=== PATIENT | male | born 1945 | race Caucasian/White ===

== ENCOUNTER 2019-02-03 15:15 | Inpatient (IN) | payer MEDICARE ==
[2019-02-03] MEDS ORDERED: Nitroglycerin 0.4 MG TAB (25 Tab Bottle) SL PRN (17:43)
[2019-02-03] MEDS: Apixaban 5 MG TAB PO SCH (21:36)
[2019-02-03] MEDS: Lisinopril 5 MG TAB PO SCH (21:36)
--- NOTE | 2019-02-03 23:01 | HP ---
REASON FOR ADMISSION: Skilled rehab in [facility] after recent hospitalization. PRIMARY CARE PHYSICIAN: Out-of-town. HISTORY OF THE PRESENT ILLNESS AND HOSPITAL COURSE: Mr. Flores is a 73-year- old male with past medical history of stroke with residual neurologic deficits, noncompliant with medications. He was only on aspirin daily and Lipitor 40 mg nightly. He also had a history of MRI compatible with dual-chamber permanent pacemaker placed in 2012 for symptomatic Mobitz 1 block, He also has history of hypertension, nicotine dependence and obesity. The patient presented initially to [facility] two weeks prior to his admission on 01/22/2019,due to history of crescendo chest pain. This is associated with increased confusion prompting further evaluation. Prior to admission, he reported that he has been experiencing pressure-like chest pain that is progressively worsening. In the ER, initial stroke scale was reportedly 4/42, but the patient was felt to be at his baseline. On further evaluation, the patient was diagnosed with CAD and he subsequently undergone CABG x4 on 01/23/2019, with CARBAJAL - LAD, SVG - ramus, diagonal, and RCA. He was also diagnosed with chronic systolic heart failure with recent echocardiogram showing EF of 40% to 45%. The patient was treated appropriately. He was placed on beta anahi, ALEBRTA inhibitor, and continued his aspirin. His statin was stopped due to elevated liver function tests. Diuretic, spironolactone and furosemide were added as well. Serial chest x- rays were done and the latest one was obtained prior to discharge on 02/03/2019 , which showed cardiomegaly with no signs of overt edema. During this hospitalization, there was also a reported significant dysphagia, thus the patient's diet was changed to pureed diet with nectar thickened liquid. His medications were crushed. The patient was also reported to have increased confusion associated with some behavioral disturbances requiring a sitter. The patient was reported to have metabolic encephalopathy. He was treated supportively and did fine. Prior to discharge, overall cognitive status was deemed at baseline, not requiring further sitter prior to discharge. The patient remained generally weak and deconditioned with the recent surgery, recommending further skilled rehab in [facility]. He was transferred on 2018. When evaluated, the patient was lying comfortably in bed. He appears confused. He knows his name only. He is not aware where he is at, at this point. No family members are present at the time of evaluation. The patient could not contribute much to his history. There was no discharge summary available at this time as well. Information were taken from the hospital records. PAST MEDICAL AND SURGICAL HISTORY: Hypertension, hyperlipidemia, history of CVA x3 with right residual weakness, history of pacemaker placement in 2013, history of gout, previous smoker, history of poor medical compliance. Obesity and gout. ALLERGIES: NONE. SOCIAL HISTORY: The patient lives alone. He is . He reports that he has two daughters. He lives in [place]. He does not use any accessory device. He admits to nicotine-tobacco use. He denies alcohol or illicit drug use. REVIEW OF SYSTEMS: Limited secondary to confusion/dementia. He denies fever or chills. He reports general weakness and fatigue. No active chest pain, shortness of breath, or pain with breathing. No abdominal pain. No rectal bleeding. CURRENT MEDICATIONS: 1. Amlodipine 5 mg p.o. daily. 2. Eliquis 5 mg p.o. b.i.d. 3. Carvedilol 3.125 mg p.o. b.i.d. 4. Aspirin 81 mg daily. 5. Lisinopril 5 mg p.o. b.i.d. 6. Furosemide 40 mg p.o. daily. 7. Spironolactone 25 mg q.a.m. 8. Nitroglycerin 0.4 sublingual q.5 minutes p.r.n. PHYSICAL EXAMINATION: VITAL SIGNS: Current vital signs; blood pressure 149/67, temperature 98.2, pulse 66, respirations 16, and O2 sats 95% on room air. Weight 202 pounds and 4 ounces. Height 5 feet 7 inches. GENERAL: The patient is asleep, easily arousable with verbal stimulus. When awakened, he is alert and able to answer questions with some appropriateness. He is comfortable on exam. No signs of agony, not in distress. HEENT: Normocephalic, atraumatic. PERRL. Intact EOM. Anicteric sclerae. Oral mucosa is moist. NECK: Supple. No LAD. No thyromegaly. CARDIAC: Regular rate and rhythm. Normal S1 and S2. LUNGS: Normal excursion. Clear to auscultation bilaterally. EXTREMITIES: No edema. No cyanosis. SKIN: Postoperative sites on the anterior chest, upper abdomen, and left leg are dry, intact, no discharge, no exudates, and no signs of infection. He has multiple bruises on the left upper arm/elbow and left lower extremities. NEURO: DTRs 2+. Gait unsteady. The rest of neurological exam were not completed as patient was so sleepy at this time. PSYCH: Appears calm with appropriate demeanor and affect. LABORATORY DATA: 02/03/2019; WBC 14.5, hemoglobin 10.5, [id number], and platelets 257. 01/26/2019; WBC 10.8, hemoglobin 8.8, hematocrit 26.1, and platelets 116. On 01/22/2019; WBC 9.3, hemoglobin 15.9, hematocrit 48.8, and platelets 189. On 01/23/2019; PT 16.3, INR 1.3, and APTT 37.9. On 02/03/2019; [id number], potassium 4.0, BUN 21, creatinine 1.09, estimated GFR 66, glucose 127, and total bilirubin 1.2. Liver enzymes; AST 125, ALT 195, and alkaline phosphatase 278. Albumin 2.9. On 02/02/2019; total bilirubin 1.5, AST 221, ALT 253, and alkaline phosphatase 282. Albumin 2.8. On 02/01/2019; B12 of 576, folate 7.30. TSH on 01/24/2019, 1.231. On 01/23/2019; triglycerides 171, cholesterol 170, LDL 103, and HDL 33. On 01/22/2019; troponin 1.026. On 01/22/2019; troponin 0.866. On01/22/2019; troponin 0.113. ASSESSMENT: 1. Deconditioning secondary to general weakness. 2. Coronary artery disease with status post coronary artery bypass grafting x4 on 01/23/2019. 3. Chronic systolic heart failure with ejection fraction of 40% to 45%, compensated. 4. Hypertension. 5. Hyperlipidemia, previously on statin, currently statin was discontinued secondary to elevated LFTs. 6. Elevated liver enzymes, nonspecified. 7. Dysphagia, cerebrovascular accident sequelae 8. History of cerebrovascular accident x3 with right-sided mild residual weakness. 9. History of pacemaker placement in 2012. 10. Abnormality of gait. 11. History of gout. PLAN: 1. The patient was admitted to [facility] for skilled rehab. We will refer to PT, OT, and ST. 2. Diet; pureed and nectar thickened liquids. Medications to be crushed. 3. Continue all current medications as modified per list. 4. Routine serial CMP and CBC every weekly. 5. DVT prophylaxis, none, the patient is already on anticoagulant. 6. Aspiration precautions. 7. Further recommendations depending on the hospital course. 8. Estimated length of stay, 2 to 3 weeks. 9. Disposition, home versus possible placement. 10.Code status; per records, the patient is FULL CODE. We will confirm this with family in the morning. Job ID: [id number] [facility]
[2019-02-04] MEDS: Lisinopril 5 MG TAB PO SCH ×2 (08:26→21:35)
[2019-02-04] MEDS: Aspirin 81 mg Enteric Coated Tablet PO SCH (08:26)
[2019-02-04] MEDS: Furosemide 40 MG TAB PO SCH (08:26)
[2019-02-04] MEDS: Apixaban 5 MG TAB PO SCH ×2 (08:26→21:41)
[2019-02-04] MEDS: Carvedilol 3.125 MG TAB PO SCH ×2 (08:26→16:52)
[2019-02-04] MEDS: Spironolactone 25 MG TAB PO SCH (08:26)
[2019-02-04] MEDS ORDERED: Prevnar 13-Val Conj/PF 0.5 ML SYRINGE IM ONE (09:00)
[2019-02-04] MEDS: Amlodipine 5 MG TAB PO SCH (11:55)
[2019-02-05] MEDS: Spironolactone 25 MG TAB PO SCH (08:34)
[2019-02-05] MEDS: Carvedilol 3.125 MG TAB PO SCH ×2 (08:34→17:06)
[2019-02-05] MEDS: Aspirin 81 mg Enteric Coated Tablet PO SCH (08:34)
[2019-02-05] MEDS: Furosemide 40 MG TAB PO SCH (08:34)
[2019-02-05] MEDS: Lisinopril 5 MG TAB PO SCH ×2 (08:34→20:15)
[2019-02-05] MEDS: Apixaban 5 MG TAB PO SCH ×2 (08:35→20:16)
[2019-02-05] MEDS: Amlodipine 5 MG TAB PO SCH (08:35)
[2019-02-06] MEDS: Carvedilol 3.125 MG TAB PO SCH ×2 (08:18→16:56)
[2019-02-06] MEDS: Spironolactone 25 MG TAB PO SCH (08:18)
[2019-02-06] MEDS: Aspirin 81 mg Enteric Coated Tablet PO SCH (08:18)
[2019-02-06] MEDS: Apixaban 5 MG TAB PO SCH ×2 (08:19→20:40)
[2019-02-06] MEDS: Furosemide 40 MG TAB PO SCH (08:19)
[2019-02-06] MEDS: Lisinopril 5 MG TAB PO SCH ×2 (08:19→20:40)
[2019-02-06] MEDS: Amlodipine 5 MG TAB PO SCH (08:20)
[2019-02-07] MEDS: Spironolactone 25 MG TAB PO SCH (09:47)
[2019-02-07] MEDS: Furosemide 40 MG TAB PO SCH (09:48)
[2019-02-07] MEDS: Lisinopril 5 MG TAB PO SCH ×2 (09:48→21:19)
[2019-02-07] MEDS: Apixaban 5 MG TAB PO SCH ×2 (09:48→21:19)
[2019-02-07] MEDS: Aspirin 81 mg Enteric Coated Tablet PO SCH (09:48)
[2019-02-07] MEDS: Amlodipine 5 MG TAB PO SCH (09:48)
[2019-02-07] MEDS: Carvedilol 3.125 MG TAB PO SCH ×2 (09:48→18:05)
--- NOTE | 2019-02-07 14:53 | CT ---
CT HEAD WITHOUT CONTRAST: INDICATION: Stroke screening. COMPARISON: Comparison is made to CT 01/22/2019. FINDINGS: Ventricles have normal size and position. Encephalomalacia involving the left temporal and temporoparietal lobe region consistent with old infa rct appears stable. Evidence of old infarct involving the left cerebellum, brainstem at the gilberto level, and lacunar infar cts in the left basal ganglia all appear stable. There are chronic ischemia white matter changes again noted. There is an area of new lucency in the deep white matter on the right when compared to the prior exam and this could potentially represent a new lacunar infarct. There is no evidence of new cortical in farct, hemorrhage, or mass. IMPRESSION: 1. Numerous old infarcts on the left appear stable as described. 2. Chronic ischemic white matter changes. New lucency in the deep white matter on the right in the centrum semiovale region could represent new lacunar infarct. MRI could be performed for confirmatio n if clinically indicated. Findings related to Dr. Kerns. CODE CR POS: OFF
[2019-02-08] MEDS: Carvedilol 3.125 MG TAB PO SCH ×2 (09:24→17:32)
[2019-02-08] MEDS: Spironolactone 25 MG TAB PO SCH (09:24)
[2019-02-08] MEDS: Apixaban 5 MG TAB PO SCH ×2 (09:25→20:57)
[2019-02-08] MEDS: Lisinopril 5 MG TAB PO SCH ×2 (09:25→20:57)
[2019-02-08] MEDS: Amlodipine 5 MG TAB PO SCH (09:25)
[2019-02-08] MEDS: Furosemide 40 MG TAB PO SCH (09:25)
[2019-02-08] MEDS: Aspirin 81 mg Enteric Coated Tablet PO SCH (09:25)
[2019-02-09] MEDS: Amlodipine 5 MG TAB PO SCH (08:17)
[2019-02-09] MEDS: Spironolactone 25 MG TAB PO SCH (08:17)
[2019-02-09] MEDS: Aspirin 81 mg Enteric Coated Tablet PO SCH (08:17)
[2019-02-09] MEDS: Carvedilol 3.125 MG TAB PO SCH ×2 (08:17→17:17)
[2019-02-09] MEDS: Apixaban 5 MG TAB PO SCH ×2 (08:18→20:05)
[2019-02-09] MEDS: Lisinopril 5 MG TAB PO SCH ×2 (08:18→19:59)
[2019-02-09] MEDS: Furosemide 40 MG TAB PO SCH (08:18)
[2019-02-10 06:15] LABS: #Basophils 0.1 thou/uL (0.0-0.2); #Eosinphils 0.2 thou/uL (0.0-0.7); #Lymphocytes 2.3 thou/uL (1.20-3.40); #Monocytes 0.6 thou/uL (0.11-0.59); #Neutrophils 5.2 thou/uL (1.40-6.50); %Basophils 1.4 % (0.0-1.0); %Eosinophils 2.6 % (0.0-10.0); %Lymphocytes 27.8 % (21.0-51.0); %Neutrophils 61.3 % (42.0-75.0); Hemoglobin 11.1 g/dL (14.0-18.0); Mean Corpuscular HGB CONC 31.4 g/dL (32.0-36.0); Mean Corpuscular Hemoglobin 30.4 pg (27.0-31.0); Mean Corpuscular Volume 96.8 fL (78.0-98.0); Platelet Count 322 thou/uL (130-400); RBC Distribution Width 12.2 % (11.5-14.5); Red Blood Cell (RBC) Count 3.66 mill/uL (4.70-6.10); White Blood Cell (WBC) Count 8.4 thou/uL (4.8-10.8)
[2019-02-10 06:20] LABS: ALT (SGPT) 101 U/L (8-55); AST (SGOT) 46 U/L (5-34); Alkaline Phosphatase 197 U/L (40-110); Bilirubin, Direct 0.4 mg/dL (0.1-0.3); Bilirubin, Total 0.7 mg/dL (0.2-1.2); Protein, Total 6.9 g/dL (5.8-8.1)
[2019-02-10] MEDS: Aspirin 81 mg Enteric Coated Tablet PO SCH (08:37)
[2019-02-10] MEDS: Carvedilol 3.125 MG TAB PO SCH ×2 (08:37→17:16)
[2019-02-10] MEDS: Lisinopril 5 MG TAB PO SCH ×2 (08:37→20:09)
[2019-02-10] MEDS: Apixaban 5 MG TAB PO SCH ×2 (08:38→20:10)
[2019-02-10] MEDS: Amlodipine 5 MG TAB PO SCH (08:38)
[2019-02-10] MEDS: Spironolactone 25 MG TAB PO SCH (08:38)
[2019-02-10] MEDS: Furosemide 40 MG TAB PO SCH (08:39)
[2019-02-11] MEDS: Carvedilol 3.125 MG TAB PO SCH ×3 (08:40→17:15)
[2019-02-11] MEDS: Apixaban 5 MG TAB PO SCH ×2 (08:40→20:56)
[2019-02-11] MEDS: Aspirin 81 mg Enteric Coated Tablet PO SCH (08:40)
[2019-02-11] MEDS: Lisinopril 5 MG TAB PO SCH (08:43)
[2019-02-11] MEDS: Spironolactone 25 MG TAB PO SCH (08:43)
[2019-02-12] MEDS: Carvedilol 3.125 MG TAB PO SCH ×2 (09:12→16:55)
[2019-02-12] MEDS: Apixaban 5 MG TAB PO SCH ×2 (09:12→20:57)
[2019-02-12] MEDS: Spironolactone 25 MG TAB PO SCH (09:12)
[2019-02-12] MEDS: Lisinopril 5 MG TAB PO SCH ×2 (09:12→20:56)
[2019-02-12] MEDS: Aspirin 81 mg Enteric Coated Tablet PO SCH (09:12)
[2019-02-13] MEDS: Carvedilol 3.125 MG TAB PO SCH ×2 (08:45→17:30)
[2019-02-13] MEDS: Aspirin 81 mg Enteric Coated Tablet PO SCH (08:45)
[2019-02-13] MEDS: Lisinopril 5 MG TAB PO SCH (08:45)
[2019-02-13] MEDS: Apixaban 5 MG TAB PO SCH ×2 (08:45→22:02)
[2019-02-13] MEDS: Spironolactone 25 MG TAB PO SCH (08:45)
[2019-02-13] MEDS ORDERED: Spironolactone 25 MG TAB PO SCH (09:30)
[2019-02-13] MEDS ORDERED: HYDROcodone/Acetaminophen 5/325 mg Tablet PO PRN (11:19)
[2019-02-13] MEDS: HYDROcodone/Acetaminophen 5/325 mg Tablet PO PRN (11:40)
[2019-02-14] MEDS: Lisinopril 5 MG TAB PO SCH (08:57)
[2019-02-14] MEDS: Carvedilol 3.125 MG TAB PO SCH ×2 (08:57→17:26)
[2019-02-14] MEDS: Apixaban 5 MG TAB PO SCH ×2 (08:57→22:08)
[2019-02-14] MEDS: Aspirin 81 mg Enteric Coated Tablet PO SCH (08:57)
[2019-02-15] MEDS: Aspirin 81 mg Enteric Coated Tablet PO SCH (09:45)
[2019-02-15] MEDS: Apixaban 5 MG TAB PO SCH ×2 (09:45→21:57)
[2019-02-15] MEDS: Carvedilol 3.125 MG TAB PO SCH ×2 (09:56→16:41)
[2019-02-15] MEDS: Spironolactone 25 MG TAB PO SCH (09:56)
[2019-02-15] MEDS: Lisinopril 5 MG TAB PO SCH (09:56)
[2019-02-16] MEDS: Apixaban 5 MG TAB PO SCH ×2 (08:52→21:51)
[2019-02-16] MEDS: Aspirin 81 mg Enteric Coated Tablet PO SCH (08:52)
[2019-02-16] MEDS: Carvedilol 3.125 MG TAB PO SCH ×2 (08:55→17:58)
[2019-02-16] MEDS ORDERED: Sulfameth/Trimethoprim DS 800-160mg TAB PO SCH (10:45)
[2019-02-16] MEDS: Triple Antibiotic Oint 1 GM Packet TOP SCH ×2 (11:59→21:51)
[2019-02-16] MEDS: Lisinopril 5 MG TAB PO SCH (12:00)
[2019-02-16] MEDS: Spironolactone 25 MG TAB PO SCH (12:00)
[2019-02-16] MEDS ORDERED: Triple Antibiotic Ointment 15 GM TUBE TOP SCH (15:00)
[2019-02-16] MEDS: Sulfameth/Trimethoprim DS 800-160mg TAB PO SCH (21:51)
[2019-02-16] MEDS ORDERED: Acetaminophen 325 MG TAB PO PRN (23:18)
[2019-02-17] MEDS: HYDROcodone/Acetaminophen 5/325 mg Tablet PO PRN ×2 (01:17→22:01)
[2019-02-17 05:46] LABS: Hemoglobin 11.5 g/dL (14.0-18.0); Platelet Count 248 thou/uL (130-400)
[2019-02-17] MEDS: Apixaban 5 MG TAB PO SCH ×2 (08:26→22:01)
[2019-02-17] MEDS: Sulfameth/Trimethoprim DS 800-160mg TAB PO SCH ×2 (08:26→22:03)
[2019-02-17] MEDS: Spironolactone 25 MG TAB PO SCH (08:26)
[2019-02-17] MEDS: Lisinopril 5 MG TAB PO SCH (08:26)
[2019-02-17] MEDS: Aspirin 81 mg Enteric Coated Tablet PO SCH (08:27)
[2019-02-17] MEDS: Triple Antibiotic Oint 1 GM Packet TOP SCH ×3 (08:27→22:03)
[2019-02-17] MEDS: Carvedilol 3.125 MG TAB PO SCH ×2 (08:27→17:17)
[2019-02-18] MEDS: Triple Antibiotic Oint 1 GM Packet TOP SCH ×3 (08:10→22:13)
[2019-02-18] MEDS: Lisinopril 5 MG TAB PO SCH (08:11)
[2019-02-18] MEDS: Sulfameth/Trimethoprim DS 800-160mg TAB PO SCH ×2 (08:11→22:12)
[2019-02-18] MEDS: Apixaban 5 MG TAB PO SCH ×2 (08:11→22:12)
[2019-02-18] MEDS: Carvedilol 3.125 MG TAB PO SCH ×2 (08:11→16:55)
[2019-02-18] MEDS: Spironolactone 25 MG TAB PO SCH (08:12)
[2019-02-18] MEDS: Aspirin 81 mg Enteric Coated Tablet PO SCH (08:14)
[2019-02-19] MEDS: Acetaminophen 325 MG TAB PO PRN (00:31)
[2019-02-19] MEDS: Spironolactone 25 MG TAB PO SCH (08:00)
[2019-02-19] MEDS: Carvedilol 3.125 MG TAB PO SCH ×2 (08:00→17:37)
[2019-02-19] MEDS: Lisinopril 5 MG TAB PO SCH (09:00)
[2019-02-19] MEDS: Sulfameth/Trimethoprim DS 800-160mg TAB PO SCH ×2 (09:41→20:40)
[2019-02-19] MEDS: Aspirin 81 mg Enteric Coated Tablet PO SCH (09:41)
[2019-02-19] MEDS: Apixaban 5 MG TAB PO SCH ×2 (09:41→20:40)
[2019-02-19] MEDS: Triple Antibiotic Oint 1 GM Packet TOP SCH ×3 (09:41→20:39)
[2019-02-20] MEDS: Sulfameth/Trimethoprim DS 800-160mg TAB PO SCH ×2 (09:10→20:04)
[2019-02-20] MEDS: Carvedilol 3.125 MG TAB PO SCH ×2 (09:10→16:55)
[2019-02-20] MEDS: Apixaban 5 MG TAB PO SCH ×2 (09:10→20:04)
[2019-02-20] MEDS: Aspirin 81 mg Enteric Coated Tablet PO SCH (09:11)
[2019-02-20] MEDS: Triple Antibiotic Oint 1 GM Packet TOP SCH ×3 (09:11→20:04)
[2019-02-20] MEDS: Spironolactone 25 MG TAB PO SCH (10:25)
[2019-02-20] MEDS: Lisinopril 5 MG TAB PO SCH (10:26)
[2019-02-21] MEDS: Sulfameth/Trimethoprim DS 800-160mg TAB PO SCH ×2 (08:24→21:19)
[2019-02-21] MEDS: Acetaminophen 325 MG TAB PO PRN (08:24)
[2019-02-21] MEDS: Apixaban 5 MG TAB PO SCH ×2 (08:25→21:19)
[2019-02-21] MEDS: Carvedilol 3.125 MG TAB PO SCH ×2 (08:25→17:15)
[2019-02-21] MEDS: Aspirin 81 mg Enteric Coated Tablet PO SCH (08:25)
[2019-02-21] MEDS: Triple Antibiotic Oint 1 GM Packet TOP SCH ×3 (08:25→21:19)
[2019-02-21] MEDS: Lisinopril 5 MG TAB PO SCH (08:25)
[2019-02-21] MEDS: Spironolactone 25 MG TAB PO SCH (08:26)
[2019-02-22] MEDS: Triple Antibiotic Oint 1 GM Packet TOP SCH ×3 (08:31→20:13)
[2019-02-22] MEDS: Apixaban 5 MG TAB PO SCH ×2 (08:31→20:13)
[2019-02-22] MEDS: Sulfameth/Trimethoprim DS 800-160mg TAB PO SCH ×2 (08:31→20:13)
[2019-02-22] MEDS: Aspirin 81 mg Enteric Coated Tablet PO SCH (08:31)
[2019-02-23] MEDS: Sulfameth/Trimethoprim DS 800-160mg TAB PO SCH ×2 (09:07→20:04)
[2019-02-23] MEDS: Apixaban 5 MG TAB PO SCH ×2 (09:07→20:04)
[2019-02-23] MEDS: Aspirin 81 mg Enteric Coated Tablet PO SCH (09:08)
[2019-02-23] MEDS: Triple Antibiotic Oint 1 GM Packet TOP SCH ×3 (09:08→20:04)
[2019-02-24 05:33] LABS: Hemoglobin 11.5 g/dL (14.0-18.0); Platelet Count 159 thou/uL (130-400)
[2019-02-24] MEDS: Sulfameth/Trimethoprim DS 800-160mg TAB PO SCH ×2 (08:08→21:42)
[2019-02-24] MEDS: Apixaban 5 MG TAB PO SCH ×2 (08:08→21:42)
[2019-02-24] MEDS: Aspirin 81 mg Enteric Coated Tablet PO SCH (08:08)
[2019-02-24] MEDS: Triple Antibiotic Oint 1 GM Packet TOP SCH ×2 (08:08→15:47)
[2019-02-24 13:34] VITALS: BMI 30.5
--- NOTE | 2019-02-24 14:05 | RAD ---
EXAM: Chest Two Views 02/24/2019 2:02 PM HISTORY: Fatigue and hypotension COMPARISON: February 03, 2019 FINDINGS: Heart: Stable cardiomegaly. Stable dual-lead pacemaker. Stable post-CABG change. Pulmonary vessels: Normal. Costophrenic angles: Clear. Lungs: No acute airspace consolidation. Pneumothorax: None. Osseous structures:Intact. Additional findings: None. IMPRESSION: No significant acute intrathoracic disease.
[2019-02-24 14:07] LABS: #Basophils 0.1 thou/uL (0.0-0.2); #Eosinphils 0.2 thou/uL (0.0-0.7); #Lymphocytes 2.3 thou/uL (1.20-3.40); #Monocytes 0.6 thou/uL (0.11-0.59); #Neutrophils 4.5 thou/uL (1.40-6.50); %Basophils 0.9 % (0.0-1.0); %Eosinophils 2.8 % (0.0-10.0); %Lymphocytes 29.8 % (21.0-51.0); %Monocytes 7.2 % (0.0-10.0); %Neutrophils 59.3 % (42.0-75.0); Hemoglobin 12.3 g/dL (14.0-18.0); Mean Corpuscular Hemoglobin 30.5 pg (27.0-31.0); Mean Corpuscular Volume 98.3 fL (78.0-98.0); Mean Platelet Volume 12.4 fL (7.4-10.4); Platelet Count 168 thou/uL (130-400); Platelet Morphology Comment Appears Adequate; Red Blood Cell (RBC) Count 4.04 mill/uL (4.70-6.10); White Blood Cell (WBC) Count 7.6 thou/uL (4.8-10.8)
[2019-02-24 14:11] LABS: ALT (SGPT) 30 U/L (8-55); AST (SGOT) 21 U/L (5-34); Albumin 3.6 g/dL (3.4-4.8); Alkaline Phosphatase 165 U/L (40-110); Anion Gap 14 mmol/L (10-20); BUN (Urea Nitrogen) 16 mg/dL (8.4-25.7); Bilirubin, Total 0.4 mg/dL (0.2-1.2); Calc. Creatinine Clearance 43 mL/min (70-130); Carbon Dioxide 23 mmol/L (23-31); Chloride 103 mmol/L (98-107); Estimated GFR-MDRD 36; Globulin 3.8 g/dL (2.4-3.5); Glucose 169 mg/dL (83-110); Potassium 4.6 mmol/L (3.5-5.1); Protein, Total 7.4 g/dL (5.8-8.1); Sodium 135 mmol/L (136-145)
[2019-02-24 14:31] LABS: Thyroid Stimulating Hormone 3.7586 uIU/mL (0.35-4.94)
[2019-02-24] MEDS ORDERED: Sodium Chloride 0.9% 1,000 ML IV SCH (14:45)
[2019-02-24] MEDS ORDERED: Mirtazapine 15 MG TAB PO SCH (21:00)
[2019-02-25 09:40] VITALS: BP 112/72; TEMP 97.4
[2019-02-25] MEDS: Apixaban 5 MG TAB PO SCH (10:20)
[2019-02-25] MEDS: Sulfameth/Trimethoprim DS 800-160mg TAB PO SCH (10:20)
[2019-02-25] MEDS: Aspirin 81 mg Enteric Coated Tablet PO SCH (10:20)
[2019-02-25] MEDS ORDERED: Midodrine HCl 2.5 MG TAB PO PRN (10:44)
[2019-02-26 17:44] LABS: Free T4 (Free Thyroxine) 0.69 ng/dL (0.70-1.48)
--- NOTE | 2019-02-27 12:41 | DIS ---
DATE OF ADMISSION: 02/03/2019 DATE OF DISCHARGE: 02/25/2019 REASON FOR ADMISSION: Skilled rehab in [facility] after recent hospitalization. FEED MANAGEMENT ADVISOR: Dr. Patino. CARDIOVASCULAR: Dr. Johnson. PRIMARY CARE: Out of town. FINAL DIAGNOSES: 1. Coronary artery disease with status post coronary artery bypass grafting x4 on 01/23/2019. 2. Chronic systolic heart failure with ejection fraction of 40% to 45%, compensated. 3. Hypertension, now with orthostatic hypotension. 4. Dysphagia, cerebrovascular accident sequale. 5. Dementia with history of behavioral disturbances, advancing. 6. Deconditioning/general weakness. 7. Abnormality of gait/imbalance, needing assistance. 8. Dyslipidemia, previously on statin with current statin was discontinued secondary to history of recent elevated LFTs during the recent hospitalization. 9. Elevated liver enzymes, nonspecified, resolve with repeat labs. 10. History of previous stroke. 11. Status post pacemaker placement in 2012. DISPOSITION: [facility] per family's request. CONDITION ON DISCHARGE: Stable. MEDICATIONS: 1. Eliquis 5 mg p.o. b.i.d. 2. Aspirin 81 mg p.o. daily. 3. Nitroglycerin 0.4 mg sublingual q.5 minutes p.r.n. 4. Remeron 7.5 mg p.o. daily at bedtime. 5. Acetaminophen 650 mg p.o. q.6 hours p.r.n. 6. Midodrine 2.5 mg p.o. t.i.d. p.r.n. for blood pressure less than or equal to 100/60. Previous medications of carvedilol, spironolactone, lisinopril, amlodipine were discontinued secondary to orthostatic hypotension. DIET: Mechanical soft with nectar thickened. Aspiration precautions. ACTIVITY: 1. To use rolling walker at all times. Needs assistance for transfer at all times. 2. Fall precautions. FOLLOWUP: 1. Follow up with Dr. Patino on 02/27/2019 at 1:00 p.m. 2. Follow up with Dr. Johnson, as previously scheduled. 3. For PT, OT and ST eval and treat in the group home once admitted. 4. The patient to be followed by Dr. Kerns in the group home per family's request. HISTORY OF THE PRESENT ILLNESS AND HOSPITAL COURSE: Mr. Flores is a very pleasant 73-year-old male with medical history of stroke with residual neurologic deficits, noncompliant with medications. He was only on aspirin daily and Lipitor 40 mg nightly when he got admitted this time in [facility] in January of 2019. He has a history of hypertension, nicotine dependence, pacemaker placement secondary to symptomatic Mobitz block 1 and obesity. The patient is initially presented on 01/22/2019 at [facility] secondary to chest pain. This was associated with increased confusion. On further evaluation, the patient was diagnosed with CAD and he subsequently undergone CABG x4 on 01/23/2019 with CARBAJAL-LAD, SVG-ramus, diagonal, and RCA. He was also diagnosed with chronic systolic heart failure with recent echocardiogram showing the EF of 40% to 45%. The patient was treated appropriately with beta anahi, ALBERTA inhibitor, and furosemide. His aspirin was continued along with Eliquis. His statin was discontinued secondary to elevated liver function tests at that time during hospitalization. During this hospitalization, he was also noted to have significant dysphagia and his diet was changed to pureed with nectar-thickened liquids. His medications were crushed at that time. There was a reported increased confusion associated with behavioral disturbances requiring a sitter during the last few days of the patient's hospital stay. The patient was reported to have metabolic encephalopathy that was treated appropriately and did fine without requiring sitter. The patient was then subsequently transferred to [facility] as he remained generally weak and deconditioned with the recent surgery and hospitalization. The patient initially did fine in rehab. He has intermittent confusion, but easily redirected and reorientated. Family members as well as friends visiting the patient reported that this is his baseline. They report memory gap since he has had his stroke. He just needs to be reminded and he will be reorientated easily. There was no significant behavioral disturbances noted during his rehab stay. The main barrier for his rehab is his intermittent confusion associated with intermittent orthostatic hypotension. His blood pressure medications were held one after the other, but no significant improvement noted. He would also report intermittent dizziness with it. Prior to discharge, the patient was walking 300 feet with using rolling walker and standby assist and contact guard assist. He is able to tolerate the therapy prior to discharge with slight fatigue. He needed some standing and one sitting rest breaks during gait due to fatigue. The patient is deemed at his max potential, but may need further rehab in the group home to maintain exercise and motor strength. His swallowing function has improved some during the rehab course. His diet was adjusted to mechanical soft with nectar-thickened liquids. The patient was evicted from his previous place of residence and he is deemed to have 24-hour supervision with his medications, thus his sister who serves as his surrogate decision maker and medical power of regulatory attorney decided to transfer the patient to [facility] and was accepted. On 02/25/2019, the patient was transferred in to [facility] for possible long-term care. Vital signs prior to discharge; blood pressure 112/72 in the standing position. Temp 97.4, pulse 96, respiration 14, O2 sats 94% on room air. Weight 194 pounds and 8 ounces. Height 5 feet 7 inches. CODE STATUS: DNAR. Job ID: [id number]
== END 2019-02-25 13:36 | DRG 949 ==
LOC: MADMS 16:27
PROVIDERS: ADMIT Family Medicine; ATTEND Family Medicine
DX: Z48.812 Encounter for surgical aftercare following surgery on the circulatory system (principal); I69.351 Hemiplegia and hemiparesis following cerebral infarction affecting right dominant side; I50.22 Chronic systolic (congestive) heart failure; F03.91 Unspecified dementia, unspecified severity, with behavioral disturbance; Z91.14 Patient's other noncompliance with medication regimen; Z79.82 Long term (current) use of aspirin; Z95.0 Presence of cardiac pacemaker; E66.9 Obesity, unspecified; I25.10 Atherosclerotic heart disease of native coronary artery without angina pectoris; Z95.1 Presence of aortocoronary bypass graft; R53.1 Weakness; R53.81 Other malaise; E78.5 Hyperlipidemia, unspecified; M10.9 Gout, unspecified; Z79.899 Other long term (current) drug therapy; I69.391 Dysphagia following cerebral infarction; R13.10 Dysphagia, unspecified; I11.0 Hypertensive heart disease with heart failure; I95.1 Orthostatic hypotension; R00.1 Bradycardia, unspecified
CPT/HCPCS: 36415; 70450; 71046; 80076; 82565; 83880; 84439; 84443; 85014; 85018; 85025; 85049

== ENCOUNTER 2020-03-08 08:25 | Emergency (ER) | payer MEDICARE, MEDICAID | END 2020-03-08 09:30 | LOC: MADERS 08:25 | DX: T45.2X1A Poisoning by vitamins, accidental (unintentional), initial encounter (principal); T46.6X1A Poisoning by antihyperlipidemic and antiarteriosclerotic drugs, accidental (unintentional), initial encounter; T44.7X1A Poisoning by beta-adrenoreceptor antagonists, accidental (unintentional), initial encounter; T43.591A Poisoning by other antipsychotics and neuroleptics, accidental (unintentional), initial encounter; M10.9 Gout, unspecified; I25.2 Old myocardial infarction; E78.5 Hyperlipidemia, unspecified; I10 Essential (primary) hypertension; F17.220 Nicotine dependence, chewing tobacco, uncomplicated; Z86.73 Personal history of transient ischemic attack (TIA), and cerebral infarction without residual deficits; Z79.82 Long term (current) use of aspirin; Z79.01 Long term (current) use of anticoagulants; Z79.899 Other long term (current) drug therapy ==

== ENCOUNTER 2023-05-02 08:05 | Outpatient (CLI) | payer MEDICARE, OTHER ==
[2023-05-02 08:48] LABS: ALT (SGPT) 93 U/L (8-55); AST (SGOT) 59 U/L (5-34); Albumin 3.9 g/dL (3.4-4.8); Alkaline Phosphatase 94 U/L (40-110); Anion Gap 14 mmol/L (10-20); BUN (Urea Nitrogen) 15 mg/dL (8.4-25.7); Bilirubin, Total 0.6 mg/dL (0.2-1.2); Calc. Creatinine Clearance 0 mL/min (70-130); Calcium 9.2 mg/dL (7.8-10.44); Carbon Dioxide 24 mmol/L (23-31); Chloride 106 mmol/L (98-107); Estimated GFR 58; Globulin 3.4 g/dL (2.4-3.5); Glucose 153 mg/dL (83-110); Potassium 4.4 mmol/L (3.5-5.1); Protein, Total 7.3 g/dL (5.8-8.1); Sodium 140 mmol/L (136-145)
[2023-05-02 22:19] LABS: Hemoglobin A1c 8.1 % (4.0-6.0)
== END 2023-05-02 08:06 | disposition home or self-care (01) ==
LOC: MADLAB 08:05
PROVIDERS: ATTEND Family Medicine
DX: R74.01 Elevation of levels of liver transaminase levels (principal); E08.21 Diabetes mellitus due to underlying condition with diabetic nephropathy; K82.8 Other specified diseases of gallbladder
CPT/HCPCS: 36415; 76705; 80053; 83036

== ENCOUNTER 2024-10-24 07:46 | Emergency (ER) | payer MEDICARE, OTHER ==
[2024-10-24 08:34] LABS: #Basophils 0.1 thou/uL (0.0-0.2); #Eosinophils 0.1 thou/uL (0.0-0.7); #Lymphocytes 1.5 thou/uL (1.20-3.40); #Monocytes 0.5 thou/uL (0.11-0.59); #Neutrophils 8.7 thou/uL (1.40-6.50); %Basophils 1.1 % (0.0-1.0); %Eosinophils 0.6 % (0.0-10.0); %Lymphocytes 13.8 % (21.0-51.0); %Monocytes 5.0 % (0.0-10.0); %Neutrophils 79.6 % (42.0-75.0); Hematocrit 47.9 % (42.0-52.0); Hemoglobin 15.8 g/dL (14.0-18.0); Mean Corpuscular Hemoglobin 30.4 pg (27.0-31.0); Mean Corpuscular Volume 92.4 fl (78.0-98.0); Platelet Count 265 10x3/uL (130-400); Red Blood Cell (RBC) Count 5.19 mill/uL (4.70-6.10); White Blood Cell (WBC) Count 10.9 10x3/uL (4.8-10.8)
[2024-10-24 08:44] LABS: ALT (SGPT) 32 U/L (Less than 45); AST (SGOT) 122 U/L (11-34); Albumin 3.5 g/dL (3.1-4.5); Alkaline Phosphatase 73 U/L (40-110); Anion Gap 17 mmol/L (10-20); BUN (Urea Nitrogen) 19 mg/dL (8.4-25.7); Bilirubin, Total 0.5 mg/dL (0.3-1.2); Calc. Creatinine Clearance 0 mL/min (70-130); Calcium 9.4 mg/dL (7.8-10.44); Carbon Dioxide 21 mmol/L (23-31); Chloride 107 mmol/L (98-107); Globulin 3.8 g/dL (2.4-3.5); Glucose 134 mg/dL (83-110); Potassium 4.2 mmol/L (3.5-5.1); Sodium 141 mmol/L (136-145)
[2024-10-24 09:26] LABS: Glucose, Urine (Dipstick) >=1000 mg/dL (Negative); Leukocyte Negative (Negative); Protein, Urine (Dipstick) 100 mg/dL (Neg-Trace); Specific Gravity, Urine 1.010 (1.005-1.030)
[2024-10-24 09:37] LABS: CAUTI Indications for Culture Alt mental st,lethar; RBC/HPF 0-3 HPF (0-3); WBC/HPF 0-3 HPF (0-3)
[2024-10-24 09:38] LABS: Urine Culture Reflex No No
[2024-10-24] MEDS ORDERED: Acetaminophen 500 MG TAB ONE (11:38)
== END 2024-10-24 13:57 | disposition short-term general hospital (02) ==
LOC: MADERS 07:46
DX: M62.82 Rhabdomyolysis (principal); N17.9 Acute kidney failure, unspecified; R29.898 Other symptoms and signs involving the musculoskeletal system; E11.9 Type 2 diabetes mellitus without complications; I10 Essential (primary) hypertension; I25.2 Old myocardial infarction; E78.5 Hyperlipidemia, unspecified; Z86.73 Personal history of transient ischemic attack (TIA), and cerebral infarction without residual deficits; F17.220 Nicotine dependence, chewing tobacco, uncomplicated; Z95.0 Presence of cardiac pacemaker; Z95.5 Presence of coronary angioplasty implant and graft; Z79.82 Long term (current) use of aspirin; Z79.01 Long term (current) use of anticoagulants; Z79.84 Long term (current) use of oral hypoglycemic drugs; Z79.899 Other long term (current) drug therapy
CPT/HCPCS: 36415; 70450; 72125; 72131; 72192; 80053; 81001; 82550; 84443; 85025; 93005; 96360; 96361

== ENCOUNTER 2024-11-07 01:46 | Emergency (ER) | payer MEDICARE, OTHER ==
[2024-11-07] MEDS ORDERED: Cyclobenzaprine 10 MG TAB ONE (02:12)
[2024-11-07] MEDS ORDERED: Acetaminophen 500 MG TAB ONE (02:12)
[2024-11-07] MEDS ORDERED: Diclofenac 1% 100 GM Topical GEL TP SCH (02:30)
[2024-11-07 02:37] LABS: Anion Gap 20 mmol/L (10-20); Chloride 101 mmol/L (98-107); Globulin 3.9 g/dL (2.4-3.5); Potassium 4.1 mmol/L (3.5-5.1); Sodium 138 mmol/L (136-145)
[2024-11-07 02:38] LABS: Hematocrit 47.2 % (42.0-52.0); Hemoglobin 14.9 g/dL (14.0-18.0); Mean Corpuscular Hemoglobin 30.1 pg (27.0-31.0); Mean Corpuscular Volume 95.2 fl (78.0-98.0); Platelet Count 257 10x3/uL (130-400); Red Blood Cell (RBC) Count 4.95 mill/uL (4.70-6.10); White Blood Cell (WBC) Count 16.0 10x3/uL (4.8-10.8)
[2024-11-07 02:39] LABS: MDiff Complete? YES
[2024-11-07 02:44] LABS: Troponin I 0.088 ng/mL (< 0.028)
[2024-11-07 03:02] LABS: Glucose, Urine (Dipstick) >=1000 mg/dL (Negative); Leukocyte Small (Negative); Protein, Urine (Dipstick) 30 mg/dL (Neg-Trace); Specific Gravity, Urine 1.015 (1.005-1.030)
[2024-11-07 03:04] LABS: Bacteria/HPF 3+ HPF (None Seen); CAUTI Indications for Culture Alt mental st,lethar; RBC/HPF Greater than 50 HPF (0-3); WBC/HPF Greater than 50 HPF (0-3)
[2024-11-07 03:05] LABS: Urine Culture Reflex Yes Yes
[2024-11-07 03:11] LABS: ALT (SGPT) 59 U/L (Less than 45); AST (SGOT) 89 U/L (11-34); Albumin 2.5 g/dL (3.1-4.5); Alkaline Phosphatase 107 U/L (40-110); BUN (Urea Nitrogen) 14 mg/dL (8.4-25.7); Bilirubin, Total 0.7 mg/dL (0.3-1.2); CK (CPK) 324 U/L (30-200); Calc. Creatinine Clearance 0 mL/min (70-130); Calcium 7.9 mg/dL (7.8-10.44); Carbon Dioxide 20 mmol/L (23-31); Glucose 133 mg/dL (83-110)
[2024-11-07] MEDS ORDERED: cefTRIAXone (ROCEPHIN) 1 GM VIAL ONE (04:21)
[2024-11-07 04:50] LABS: Troponin I 0.053 ng/mL (< 0.028)
== END 2024-11-07 05:22 | disposition short-term general hospital (02) ==
LOC: MADERS 01:46
DX: M62.830 Muscle spasm of back (principal); M85.88 Other specified disorders of bone density and structure, other site; N39.0 Urinary tract infection, site not specified; R74.01 Elevation of levels of liver transaminase levels; I25.2 Old myocardial infarction; E78.5 Hyperlipidemia, unspecified; I10 Essential (primary) hypertension; E03.9 Hypothyroidism, unspecified; I25.10 Atherosclerotic heart disease of native coronary artery without angina pectoris; E11.9 Type 2 diabetes mellitus without complications; Z86.73 Personal history of transient ischemic attack (TIA), and cerebral infarction without residual deficits; Z95.5 Presence of coronary angioplasty implant and graft; F17.220 Nicotine dependence, chewing tobacco, uncomplicated; Z79.01 Long term (current) use of anticoagulants; Z79.899 Other long term (current) drug therapy; Z79.82 Long term (current) use of aspirin; Z79.84 Long term (current) use of oral hypoglycemic drugs; Z79.890 Hormone replacement therapy
CPT/HCPCS: 70450; 72125; 72128; 72131; 80053; 81001; 82550; 84484; 85025; 87077; 87086; 93005; 96365; J0696; J7120

== ENCOUNTER 2025-02-27 09:40 | Emergency (ER) | payer MEDICARE, MEDICAID ==
[2025-02-27] MEDS ORDERED: Ondansetron PF 4 MG/2 ML Vial ONE (10:13)
[2025-02-27 10:24] LABS: Hematocrit 49.1 % (42.0-52.0); Hemoglobin 15.2 g/dL (14.0-18.0); Mean Corpuscular Hemoglobin 30.0 pg (27.0-31.0); Mean Corpuscular Volume 97.4 fl (78.0-98.0); Platelet Count 206 10x3/uL (130-400); Red Blood Cell (RBC) Count 5.04 mill/uL (4.70-6.10); White Blood Cell (WBC) Count 9.5 10x3/uL (4.8-10.8)
[2025-02-27 10:25] LABS: #Basophils 0.1 thou/uL (0.0-0.2); #Eosinophils 0.0 thou/uL (0.0-0.7); #Lymphocytes 1.4 thou/uL (1.20-3.40); #Monocytes 0.6 thou/uL (0.11-0.59); #Neutrophils 7.3 thou/uL (1.40-6.50); %Basophils 0.9 % (0.0-1.0); %Eosinophils 0.4 % (0.0-10.0); %Lymphocytes 15.1 % (21.0-51.0); %Monocytes 6.1 % (0.0-10.0); %Neutrophils 77.6 % (42.0-75.0)
[2025-02-27 10:39] LABS: ALT (SGPT) Less than 7 U/L (Less than 45); AST (SGOT) 16 U/L (11-34); Albumin 3.2 g/dL (3.1-4.5); Alkaline Phosphatase 117 U/L (40-110); Anion Gap 21 mmol/L (10-20); BUN (Urea Nitrogen) 15 mg/dL (8.4-25.7); Bilirubin, Total 0.5 mg/dL (0.3-1.2); Calc. Creatinine Clearance 0 mL/min (70-130); Calcium 8.8 mg/dL (7.8-10.44); Carbon Dioxide 21 mmol/L (23-31); Chloride 101 mmol/L (98-107); Globulin 4.2 g/dL (2.4-3.5); Glucose 133 mg/dL (83-110); Lipase 45 U/L (8-78); Magnesium 1.3 mg/dL (1.6-2.6); Potassium 3.6 mmol/L (3.5-5.1); Sodium 139 mmol/L (136-145); Troponin I 0.062 ng/mL (< 0.028)
[2025-02-27] MEDS ORDERED: Aspirin Chewable 81 MG TAB ONE (10:47)
[2025-02-27] MEDS ORDERED: Magnesium 2 GM/50 ML BAG (IN WATER) ONE (10:48)
[2025-02-27 13:05] LABS: Troponin I 0.047 ng/mL (< 0.028)
== END 2025-02-27 14:02 | disposition short-term general hospital (02) ==
LOC: MADERS 09:40
DX: E83.42 Hypomagnesemia (principal); R11.2 Nausea with vomiting, unspecified; R79.89 Other specified abnormal findings of blood chemistry; Z86.73 Personal history of transient ischemic attack (TIA), and cerebral infarction without residual deficits; I25.2 Old myocardial infarction; E78.5 Hyperlipidemia, unspecified; I10 Essential (primary) hypertension; F17.220 Nicotine dependence, chewing tobacco, uncomplicated
CPT/HCPCS: 71045; 80053; 83690; 83735; 84484; 85025; 93005; 96361; 96365; 96375; J2405; J3475; J7030